=== PATIENT | female | born 1940 | race African-American/Black ===

== ENCOUNTER 2024-05-14 13:46 | Emergency (ER) | payer OTHER, BC ==
--- NOTE | 2024-05-14 14:53 | RAD REPORT ---
EXAM DESCRIPTION: RAD - Chest Single View - 05/14/2024 2:47 pm CLINICAL HISTORY: syncope Chest pain. COMPARISON: <Comparisons> FINDINGS: Portable technique limits examination quality. The lungs are grossly clear. The heart is upper limit normal in size. No displaced fractures. IMPRESSION: No acute intrathoracic process suspected.
[2024-05-14 15:04] LABS: Absolute Eosinophils 0.1 K/uL (0-0.5); Absolute Lymphocytes (CBC) 1.2 K/uL (0.7-4.9); Absolute Monocytes 0.4 K/uL (0.1-1.3); Absolute Neutrophil 3.8 K/uL (1.8-8.0); Basophils % 0.6 % (0-1.3); Eosinophils % 1.1 % (0-4.4); Hematocrit 42.2 % (36.0-45.0); Hemoglobin 13.5 g/dL (12.0-15.0); Lymphocytes % 21.6 % (15.3-44.8); MCH 27.5 pg (27.0-35.0); MCHC 31.9 g/dL (32.0-36.0); MCV 86.2 fL (80-100); MPV 8.7 fL (7.6-11.3); Monocytes % 6.5 % (3.3-12.3); Neutrophils % 70.2 % (41.7-73.7); Nucleated Red Blood Cells % 0.2 % (0-0); Platelets 182 thou/uL (152-406); RBC Red Blood Cell Count 4.89 M/uL (3.86-4.86)
[2024-05-14] MEDS ORDERED: NA CHLORIDE 0.9% 1,000 ML ONE (15:29)
[2024-05-14 16:07] LABS: ALT/SGPT 24 U/L (13-56); AST/SGOT 20 U/L (15-37); Albumin 3.4 g/dL (3.4-5.0); Albumin/Globulin Ratio 0.8 (1.1-1.8); Alkaline Phosphatase 82 U/L (45-117); Anion Gap 9.6 mEq/L (5.0-15.0); BUN Blood Urea Nitrogen 27 mg/dL (7-18); Bicarbonate 25 mEq/L (21-32); Bilirubin Total 0.4 mg/dL (0.2-1.0); Globulin 4.3 g/dL (2.3-3.5); Glomerular Filtration Rate 45 ml/min (=/>90); Glucose Level 112 mg/dL (74-106); Magnesium 2.2 mg/dL (1.6-2.4); Potassium 3.6 mEq/L (3.5-5.1); Protein, Total 7.7 g/dL (6.4-8.2); Sodium Level 140 mEq/L (136-145); Troponin High Sensitivity 5.4 pg/mL (<58.9)
[2024-05-14 16:10] LABS: Bilirubin Direct < 0.2 mg/dL (0-0.2); Bilirubin Indirect, Calculated 0.2 mg/dL (0.2-0.8)
--- NOTE | 2024-05-14 16:46 | EDPHYS ---
Physician Documentation [facility] Name: Marge Ledbetter Age: 83 yrs Sex: Female : 1940 Arrival Date: 05/14/2024 Time: 13:46 Bed 8 Private MD: ED Physician Polo Ravi HPI: 05/14 17:33 This 83 yrs old Black Female presents to ER via Wheelchair with complaints of Syncope. rt 17:33 Patient presents to the ED with a syncopal event. The patient was fishing outside in rt the heat, which came acutely lightheaded, lost consciousness briefly. Return to baseline status. Denies chest pain, other acute complaints at this time. Symptoms are moderate in severity, no other aggravating or alleviating factors.. Historical: - Allergies: 16:40 PENICILLINS; mb9 16:40 Procardia; mb9 - Home Meds: 16:40 [place]-3 Oral [Active]; mb9 - PMHx: 16:40 Hypertension; mb9 - Immunization history:: Adult Immunizations unknown. - Infectious Disease History:: Denies. - Social history:: Smoking status: Patient denies any tobacco usage or history of. - Family history:: not pertinent. ROS: 17:33 Constitutional: Negative for fever, chills, and weight loss, Cardiovascular: Negative rt for chest pain, palpitations, and edema, Respiratory: Negative for shortness of breath, cough, wheezing, and pleuritic chest pain, Abdomen/GI: Negative for abdominal pain, nausea, vomiting, diarrhea, and constipation, MS/Extremity: Negative for injury and deformity, Skin: Negative for injury, rash, and discoloration, 17:33 Neuro: Positive for syncope, Negative for headache, Exam: 17:33 Constitutional: This is a well developed, well nourished patient who is awake, alert, rt and in no acute distress. Head/Face: Normocephalic, atraumatic. Chest/axilla: Normal chest wall appearance and motion. Nontender with no deformity. No lesions are appreciated. Cardiovascular: Regular rate and rhythm with a normal S1 and S2. No gallops, murmurs, or rubs. Normal PMI, no JVD. No pulse deficits. Respiratory: Lungs have equal breath sounds bilaterally, clear to auscultation and percussion. No rales, rhonchi or wheezes noted. No increased work of breathing, no retractions or nasal flaring. Abdomen/GI: Soft, non-tender, with normal bowel sounds. No distension or tympany. No guarding or rebound. No evidence of tenderness throughout. Skin: Warm, dry with normal turgor. Normal color with no rashes, no lesions, and no evidence of cellulitis. MS/ Extremity: Pulses equal, no cyanosis. Neurovascular intact. Full, normal range of motion. Neuro: Awake and alert, GCS 15, oriented to person, place, time, and situation. Cranial nerves II-XII grossly intact. Motor strength 5/5 in all extremities. Sensory grossly intact. Cerebellar exam normal. Normal gait. 17:33 ENT: Dry mucous membranes. 17:33 ECG was reviewed by the Attending Physician. Vital Signs: 14:00 BP 139 / 64; Pulse 66; Resp 18; Temp 97.8; Pulse Ox 98% on R/A; Weight 70.31 kg; Height ph 5 ft. 1 in. ; 16:51 BP 161 / 79; Pulse 60; Resp 18; Pulse Ox 100% on R/A; ar6 14:00 Body Mass Index 29.29 (70.31 kg, 154.94 cm) ph MDM: 14:03 Patient medically screened. rt 17:33 Differential Diagnosis: Dehydration, dysrhythmia, electrolyte disturbance. Data rt reviewed: vital signs, nurses notes, lab test result(s), EKG, radiologic studies. Consideration of Admission/Observation Escalation of care including admission/observation considered. Patient well-appearing, stable vital signs, unremarkable workup, symptoms improving with treatment in the ED, no indications for admission at this time, patient to follow-up as an outpatient.. I considered the following discharge prescriptions or medication management in the emergency department Medications were administered in the Emergency Department. See MAR. Independent interpretation of the following test(s) in the Emergency Department X-Ray: My interpretation is X-rayNo edema seen on interpretation of. Test considered but Not performed: CT: Patient denies headache, signs and symptoms are not consistent with intracranial hemorrhage, subarachnoid hemorrhage. There is no head trauma. CT scan of the head is not indicated. Care significantly affected by the following chronic conditions: Hypertension. Counseling: I had a detailed discussion with the patient and/or guardian regarding the historical points, exam findings, and any diagnostic results supporting the discharge/admit diagnosis, lab results, radiology results, the need for outpatient follow up, to return to the emergency department if symptoms worsen or persist or if there are any questions or concerns that arise at home. Response to treatment: the patient's symptoms have markedly improved after treatment. 05/14 14:04 Order name: Basic Metabolic Panel; Complete Time: 16:17 rt 05/14 14:04 Order name: CBC with Diff; Complete Time: 16:17 rt 05/14 14:04 Order name: LFT's; Complete Time: 16:17 rt 05/14 14:04 Order name: Magnesium; Complete Time: 16:17 rt 05/14 14:04 Order name: Troponin HS; Complete Time: 16:17 rt 05/14 14:04 Order name: XRAY Chest (1 view); Complete Time: 14:56 rt 05/14 14:04 Order name: Cardiac monitoring; Complete Time: 16:41 rt 05/14 14:04 Order name: EKG - Nurse/Tech; Complete Time: 15:02 rt 05/14 14:04 Order name: IV Saline Lock; Complete Time: 15:02 rt 05/14 14:04 Order name: Labs collected and sent; Complete Time: 15:02 rt 05/14 14:04 Order name: O2 Per Protocol; Complete Time: 16:41 rt 05/14 14:04 Order name: O2 Sat Monitoring; Complete Time: 16:41 rt 05/14 15:04 Order name: Labs - recollect needed: recollect green top; Complete Time: 15:32 bd EC:33 Rate is 57 beats/min. Rhythm is regular, Sinus bradycardia with No ectopy. QRS [place] is rt Normal. MN interval is normal. QRS interval is normal. QT interval is normal. No Q waves. No ST changes noted. Interpreted by me. Administered Medications: 15:32 Drug: NS 0.9% IV 1000 ml IV at 1 bolus Per protocol; 1000 mL bolus Route: IV; Rate: 1 ph bolus; Site: left antecubital; 16:29 Follow up: Response: No adverse reaction; IV Status: Completed infusion; IV Intake: ar6 1000ml Disposition Summary: 05/14/24 16:46 Discharge Ordered Notes: Location: Home rt Problem: new rt Symptoms: have improved rt Condition: Stable rt Diagnosis - Syncope rt Followup: rt - With: Private Physician - When: 2 - 3 days - Reason: Discharge Instructions: - Discharge Summary Sheet rt - Syncope rt Forms: - Medication Reconciliation Form rt - Antibiotic Education rt - Prescription Opioid Use rt - Patient Portal Instructions rt - Leadership Thank You Letter rt Signatures: Dispatcher [employer] Lady Segura Patricia, RN RN ph Sdae, Dona Garcia RN RN mb9 Polo Ravi MD MD rt Marzena Monroy RN ar6 Corrections: (The following items were deleted from the chart) 15:04 15:03 Labs - recollect needed ordered. bd bd 16:40 14:06 Allergies: No Known Allergies; ph mb9
--- NOTE | 2024-05-14 16:46 | ER ---
Nurse's Notes [facility] Name: Marge Ledbetter Age: 83 yrs Sex: Female : 1940 Arrival Date: 05/14/2024 Time: 13:46 Bed 8 Private MD: Diagnosis: Syncope Presentation: 05/14 14:00 Chief complaint: Patient states: Out fishing w/ family, states that she started feeling ph overheated and passed out, then passed out again while son's were assisting her into the car. Denies injury. Coronavirus screen: Vaccine status: Patient reports receiving the 2nd dose of the covid vaccine. Ebola Screen: No symptoms or risks identified at this time. Initial Sepsis Screen: Does the patient meet any 2 criteria? No. Patient's initial sepsis screen is negative. Does the patient have a suspected source of infection? No. Patient's initial sepsis screen is negative. Risk Assessment: Do you want to hurt yourself or someone else? Patient reports no desire to harm self or others. Onset of symptoms was May 14, 2024. 14:00 Method Of Arrival: Wheelchair ph 14:00 Acuity: CELY 3 ph Triage Assessment: 17:03 General: Appears in no apparent distress. comfortable, Behavior is calm, cooperative, ld1 appropriate for age. Pain: Denies pain. EENT: No signs and/or symptoms were reported regarding the EENT system. Neuro: Level of Consciousness is awake, alert, obeys commands, Oriented to person, place, time, situation. Cardiovascular: Capillary refill < 3 seconds Patient's skin is warm and dry. Respiratory: Airway is patent Respiratory effort is even, unlabored. GI: Abdomen is round non-distended. : No signs and/or symptoms were reported regarding the genitourinary system. Derm: No signs and/or symptoms reported regarding the dermatologic system. Musculoskeletal: No signs and/or symptoms reported regarding the musculoskeletal system. Historical: - Allergies: 16:40 PENICILLINS; mb9 16:40 Procardia; mb9 - Home Meds: 16:40 [place]-3 Oral [Active]; mb9 - PMHx: 16:40 Hypertension; mb9 - Immunization history:: Adult Immunizations unknown. - Infectious Disease History:: Denies. - Social history:: Smoking status: Patient denies any tobacco usage or history of. - Family history:: not pertinent. Screenin:39 [facility] ED Fall Risk Assessment (Adult) History of falling in the last 3 months, mb9 including since admission Yes- physiologic fall (2 pts) Confusion or Disorientation No (0 pts) Intoxicated or Sedated No (0 pts) Impaired Gait Yes (1 pt) Mobility Assist Device Used Yes (1 pt) Altered Elimination No (0 pt) Score/Fall Risk Level 3 or more points = High Risk Oriented to surroundings, Maintained a safe environment, Educated pt \T\ family on fall prevention, incl call for assistance when getting out of bed. Abuse screen: Denies threats or abuse. Nutritional screening: No deficits noted. Tuberculosis screening: No symptoms or risk factors identified. Assessment: 16:38 Reassessment: pt brought back to ER room. mb9 16:45 Neuro: Level of Consciousness is awake, alert, obeys commands, Oriented to person, ar6 place, time, situation. Cardiovascular: Denies chest pain, Capillary refill < 3 seconds. Respiratory: Airway is patent. GI: Abdomen is round non-distended, Abd is soft and non tender X 4 quads. : No signs and/or symptoms were reported regarding the genitourinary system. EENT: Oral mucosa is moist. EENT: Oral mucosa is moist. Derm: Skin is intact, is healthy with good turgor, Skin is dry, Skin is pink, warm \T\ dry. Musculoskeletal: No signs and/or symptoms reported regarding the musculoskeletal system. 16:51 Pain: Denies pain. ar6 Vital Signs: 14:00 BP 139 / 64; Pulse 66; Resp 18; Temp 97.8; Pulse Ox 98% on R/A; Weight 70.31 kg; Height ph 5 ft. 1 in. ; 16:51 BP 161 / 79; Pulse 60; Resp 18; Pulse Ox 100% on R/A; ar6 14:00 Body Mass Index 29.29 (70.31 kg, 154.94 cm) ph ED Course: 13:51 Patient arrived in ED. im 13:53 Polo Ravi MD is Attending Physician. rt 14:06 Triage completed. ph 14:06 Arm band placed on Patient placed in waiting room, Patient notified of wait time. ph 14:49 XRAY Chest (1 view) In Process Unspecified. EDMS 14:51 Basic Metabolic Panel Sent. [facility] 14:51 CBC with Diff Sent. 6 14:51 LFT's Sent. [facility] 14:51 Troponin HS Sent. [facility] 14:51 Initial lab(s) drawn, by me, sent to lab. Inserted saline lock: 20 gauge in left bc6 antecubital area, using aseptic technique. Blood collected. Flushed with 10 mL NS. 16:32 Dona Stuart, RN is Primary Nurse. mb9 16:39 Placed in gown. Bed in low position. Call light in reach. Side rails up X 1. Provided mb9 Education on: press call light if needing anything. Client placed on continuous cardiac and pulse oximetry monitoring. NIBP monitoring applied. compliance monitor on. 16:45 No apparent distress. Awaiting disposition. ar6 16:45 No provider procedures requiring assistance completed. IV discontinued, intact, ar6 bleeding controlled, No redness/swelling at site. Pressure dressing applied. Administered Medications: 15:32 Drug: NS 0.9% IV 1000 ml IV at 1 bolus Per protocol; 1000 mL bolus Route: IV; Rate: 1 ph bolus; Site: left antecubital; 16:29 Follow up: Response: No adverse reaction; IV Status: Completed infusion; IV Intake: ar6 1000ml Medication: 16:39 VIS not applicable for this client. mb9 Intake: 16:29 IV: 1000ml; Total: 1000ml. ar6 Outcome: 16:46 Discharge ordered by MD. rt 17:02 Patient left the ED. ar6 17:04 Discharged to home ambulatory, ld1 17:04 Condition: stable 17:04 Discharge instructions given to patient, Instructed on discharge instructions, follow up and referral plans. Demonstrated understanding of instructions, follow-up care, Signatures: Dispatcher [employer] Marge Ziegler RN RN ph Michelle Riggs RN RN ld1 Dona Stuart, RN RN Polo Ko MD MD rt Allison Ceja 6 Dana Trejo Amber RN RN ar6 Corrections: (The following items were deleted from the chart) 16:40 14:06 Allergies: No Known Allergies; ph mb9
[2024-05-14 17:16] VITALS: TEMP 97.8
[2024-05-14 17:26] VITALS: BP 161/79; O2SAT 100
== END 2024-05-14 17:02 | disposition home or self-care (01) ==
LOC: ER 13:46
DX: R55 Syncope and collapse (principal); I10 Essential (primary) hypertension
CPT/HCPCS: 85025; 80048; 36415; 83735; 80076; 84484; 71045; J7030